=== PATIENT | male | born 1990 | race Caucasian/White ===

== ENCOUNTER 2021-07-30 12:17 | Inpatient (IN) | payer BC ==
[2021-07-30] MEDS ORDERED: MAG HYDROX/AL HYDROX/SIMETH 30 ML UNIT-DOSE CUP PO PRN (13:50)
[2021-07-30] MEDS ORDERED: ONDANSETRON *ODT* 4 MG TABLET SL PRN (13:50)
[2021-07-30] MEDS ORDERED: NICOTINE 10 MG CARTRIDGE (INHALER) IH PRN (13:50)
[2021-07-30] MEDS ORDERED: IBUPROFEN 400 MG TABLET (FP) PO PRN (13:50)
[2021-07-30] MEDS ORDERED: diazePAM 5 MG TABLET PO PRN (13:50)
[2021-07-30] MEDS ORDERED: ACETAMINOPHEN 325 MG TABLET (FP) PO PRN ×2 (13:50)
[2021-07-30] MEDS ORDERED: diazePAM 5 MG TABLET PO ONE (13:50)
[2021-07-30] MEDS ORDERED: BISMUTH SUBSALICYLATE 524 MG/30 ML PO PRN (13:50)
[2021-07-30] MEDS ORDERED: MAGNESIUM CITRATE 300 ML BOTTLE PO PRN (13:50)
[2021-07-30] MEDS ORDERED: MAGNESIUM HYDROX 2400MG/30ML ORAL SUSPENSION 30 ML CUP PO PRN (13:50)
[2021-07-30] MEDS ORDERED: MENTHOL/PHENOL 1 EACH UD MM PRN (13:50)
[2021-07-30 14:57] VITALS: BMI 30.5
[2021-07-30] MEDS: hydrOXYzine PAMOATE 25 MG CAPSULE (FP) PO SCH ×3 (15:14→23:06)
[2021-07-30] MEDS: levETIRAcetam 500 MG TABLET (FP) PO SCH ×2 (15:14→23:07)
[2021-07-30] MEDS ORDERED: hydrOXYzine PAMOATE 25 MG CAPSULE (FP) PO ONE (15:15)
[2021-07-30] MEDS: diazePAM 5 MG TABLET PO SCH ×2 (17:48→23:07)
[2021-07-30 18:09] LABS: ALBUMIN 4.2 g/dl (3.4-5.0); BLOOD UREA NITROGEN 18.7 mg/dL (7-18)
[2021-07-30 18:11] LABS: HEMATOCRIT 44.2 % (35.4-49); HEMOGLOBIN 15.3 GM/dL (11.7-16.9); MCH 30.8 pg (25.7-33.7); MCHC 34.6 g/dl (32.0-35.9); MEAN CELL VOLUME 89.1 fl (80-96); MEAN PLT VOLUME 8.5 fl (7.5-11.1); PLATELET COUNT 297 10^3/uL (134-434); RBC 4.96 M/mm3 (4.00-5.60); RDW 12.9 % (11.9-15.9)
[2021-07-30 18:14] LABS: BILIRUBIN,TOTAL 0.7 mg/dL (0.2-1); TOT PROT 8.3 g/dl (6.4-8.2)
[2021-07-30] MEDS: THIAMINE HCL 100 MG TABLET (FP) PO SCH (23:07)
[2021-07-30] MEDS: MELATONIN 5 MG TABLETS PO SCH (23:07)
[2021-07-31] MEDS: hydrOXYzine PAMOATE 25 MG CAPSULE (FP) PO SCH ×5 (06:34→22:20)
[2021-07-31] MEDS: diazePAM 5 MG TABLET PO SCH ×4 (06:34→22:21)
[2021-07-31] MEDS: PRENATAL VITAMINS W/ FOLIC ACID TABLET (FP) PO SCH (10:45)
[2021-07-31] MEDS: levETIRAcetam 500 MG TABLET (FP) PO SCH ×2 (10:45→22:20)
[2021-07-31] MEDS ORDERED: FLU VACC QS2021-22(6MOS UP)/PF 60 MCG/0.5 ML SYRINGE IM ONE (12:00)
[2021-07-31] MEDS: THIAMINE HCL 100 MG TABLET (FP) PO SCH (22:20)
[2021-07-31] MEDS: MELATONIN 5 MG TABLETS PO SCH (22:20)
[2021-07-31] MEDS: METHOCARBAMOL 500 MG TABLET PO PRN (22:22)
[2021-08-01] MEDS: hydrOXYzine PAMOATE 25 MG CAPSULE (FP) PO SCH ×5 (05:49→22:21)
[2021-08-01] MEDS: diazePAM 5 MG TABLET PO SCH ×3 (05:49→22:21)
[2021-08-01] MEDS: PRENATAL VITAMINS W/ FOLIC ACID TABLET (FP) PO SCH (10:37)
[2021-08-01] MEDS: levETIRAcetam 500 MG TABLET (FP) PO SCH ×2 (10:37→22:21)
[2021-08-01] MEDS: SERTRALINE HCL 50 MG TABLET (FP) PO SCH (10:37)
[2021-08-01] MEDS: MELATONIN 5 MG TABLETS PO SCH (22:21)
[2021-08-01] MEDS: THIAMINE HCL 100 MG TABLET (FP) PO SCH (22:21)
[2021-08-01] MEDS: METHOCARBAMOL 500 MG TABLET PO PRN (22:23)
[2021-08-02] MEDS: hydrOXYzine PAMOATE 25 MG CAPSULE (FP) PO SCH (06:08)
[2021-08-02] MEDS: diazePAM 5 MG TABLET PO SCH ×2 (06:08→17:47)
[2021-08-02] MEDS: levETIRAcetam 500 MG TABLET (FP) PO SCH ×2 (10:52→22:15)
[2021-08-02] MEDS: SERTRALINE HCL 50 MG TABLET (FP) PO SCH (10:52)
[2021-08-02] MEDS: PRENATAL VITAMINS W/ FOLIC ACID TABLET (FP) PO SCH (10:52)
[2021-08-02] MEDS: METHOCARBAMOL 500 MG TABLET PO PRN ×2 (10:54→22:16)
[2021-08-02] MEDS: THIAMINE HCL 100 MG TABLET (FP) PO SCH (22:15)
[2021-08-02] MEDS: MELATONIN 5 MG TABLETS PO SCH (22:15)
[2021-08-02] MEDS: hydrOXYzine PAMOATE 25 MG CAPSULE (FP) PO PRN (22:16)
[2021-08-03] MEDS: hydrOXYzine PAMOATE 25 MG CAPSULE (FP) PO PRN (05:51)
[2021-08-03] MEDS ORDERED: diazePAM 5 MG TABLET PO ONE (06:00)
[2021-08-03 06:35] VITALS: PULSE 70
[2021-08-03 09:23] VITALS: BP 129/82; TEMP 96.6
[2021-08-03] MEDS: PRENATAL VITAMINS W/ FOLIC ACID TABLET (FP) PO SCH (09:59)
[2021-08-03] MEDS: levETIRAcetam 500 MG TABLET (FP) PO SCH (09:59)
[2021-08-03] MEDS: SERTRALINE HCL 50 MG TABLET (FP) PO SCH (09:59)
== END 2021-08-03 09:48 | disposition home or self-care (01) | DRG 774 ==
LOC: YASAS 12:17 → Y6N 15:39 → Y3N 15:40
PROVIDERS: ADMIT Allergy & Immunology; ATTEND Allergy & Immunology
PROC: HZ2ZZZZ Detoxification Services for Substance Abuse Treatment (ICD-10-PCS; principal; 2021-07-30)
DX: F10.230 Alcohol dependence with withdrawal, uncomplicated (principal); F14.20 Cocaine dependence, uncomplicated; D33.2 Benign neoplasm of brain, unspecified; G40.909 Epilepsy, unspecified, not intractable, without status epilepticus; K58.9 Irritable bowel syndrome, unspecified; Z56.0 Unemployment, unspecified
CPT/HCPCS: 36415; 80053; 85027; 86780; 90686; C9803; G0008; U0003; U0005